=== PATIENT | female | born 1975 | race Caucasian/White ===

== ENCOUNTER 2016-10-22 07:42 | Emergency (ER) | payer OTHER ==
[2016-10-22 08:33] LABS: URINE APPEARANCE CLEAR; URINE BILIRUBIN NEGATIVE (NEGATIVE); URINE BLOOD SMALL (NEGATIVE); URINE COLOR YELLOW; URINE GLUCOSE (UA) NEGATIVE (NEGATIVE); URINE KETONE NEGATIVE (NEGATIVE); URINE LEUKOCYTE ESTERASE NEGATIVE (NEGATIVE); URINE NITRITE NEGATIVE (NEGATIVE); URINE PROTEIN NEGATIVE (NEGATIVE); URINE UROBILINOGEN 0.2 E.U./dL (0.20 - 1.00)
[2016-10-22 08:35] LABS: HCG,QUALITATIVE URINE NEGATIVE (NEGATIVE); HEMATOCRIT 30.6 % (35.0-47.0); HEMOGLOBIN 8.7 gm/dl (11.6-16.0); MEAN CELL VOLUME 66.2 fl (81-97); MEAN CORPUSCULAR HEMOGLOBIN 18.8 pg (27-33); MEAN CORPUSCULAR HGB CONC 28.4 g/dl (32-36); MEAN PLATELET VOLUME 8.9 fl (7.4-10.4); PLATELET COUNT 585 K/uL (130-400); RED BLOOD COUNT 4.62 M/uL (3.80-5.40); RED CELL DISTRIBUTION WIDTH 17.1 % (11.5-14.5)
[2016-10-22 08:41] LABS: WHITE BLOOD COUNT W/O DIFF 20.6 K/uL (4.2-12.2)
[2016-10-22] MEDS: 0.9 % SODIUM CHLORIDE 1,000 ML BAG IV ONE ×3 (08:41→11:05)
--- NOTE | 2016-10-22 08:41 | Emergency Department Record ---
History of Present Illness - General Chief Complaint: Abdominal Pain Stated Complaint: ABD PAIN/PASSED OUT Time Seen by Provider: 10/22/16 08:08 Source: Patient Mode of Arrival: Ambulatory Limitations: No limitations - History of Present Illness Initial Comments: pt has had ap and diarrhea for a week and vomiting x1. this morning as she was leaving the bathroom she became lightheaded and passed out hitting her head hard on the doorjamb. she has a bad headache now.. she also injured her r knee but is able to bear wt. Complaint: Abdominal pain Onset/Timin -: Week(s) Location: Suprapubic Severity: Moderate Quality: Cramping, Stabbing Consistency: Intermittent Improves With: Nothing Worsens With: Nothing Associated Symptoms: Diarrhea, Syncope, Vomiting Treatments Prior to Arrival: Other - Related Data Patient : No Home Medications Medication Instructions Recorded Confirmed Last Taken Metformin HCl [Metformin HCl] 500 mg PO TID 10/22/16 10/22/16 10/22/16 Spironolactone [Aldactone] 50 mg PO DAILY 10/22/16 10/22/16 Unknown Spironolactone [Aldactone] 50 mg PO DAILY 10/22/16 10/22/16 10/22/16 Allergies Allergy/AdvReac Type Severity Reaction Status Date / Time Sulfa (Sulfonamide Allergy ANAPHYLAXIS Verified 10/22/16 07:47 Antibiotics) Travel Screening - Travel/Exposure Within Last 30 Days Have you traveled within the last 30 days?: No - Travel/Exposure Within Last Year Have you traveled outside the [place] in the last year?: No - Additonal Travel Details Have you been exposed to anyone with a communicable illness?: No - Travel Symptoms Symptom Screening: None Review of Systems Reviewed: No additional complaints except as noted below Constitutional: Reports: As per HPI. Denies: Chills, Fever, Malaise, Night sweats, Weakness, Weight change Eyes: Reports: As per HPI. Denies: Eye discharge, Eye pain, Photophobia, Vision change ENT: Reports: As per HPI. Denies: Congestion, Dental pain, Ear pain, Epistaxis , Hearing loss, Throat pain Respiratory: Reports: As per HPI. Denies: Cough, Dyspnea, Hemoptysis, Stridor, Wheezes Cardiovascular: Reports: As per HPI. Denies: Arrhythmia, Chest pain, Dyspnea on exertion, Edema, Murmurs, Orthopnea, Palpitations, Paroxysmal nocturnal dyspnea, Rheumatic Fever, Syncope Endocrine: Reports: As per HPI. Denies: Fatigue, Heat or cold intolerance, Polydipsia, Polyuria Gastrointestinal: Reports: As per HPI. Denies: Abdominal pain, Constipation, Diarrhea, Hematemesis, Hematochezia, Melena, Nausea, Vomiting Genitourinary: Reports: As per HPI. Denies: Abnormal menses, Discharge, Dyspareunia, Dysuria, Frequency, Hematuria, Incontinence, Retention, Urgency Musculoskeletal: Reports: As per HPI. Denies: Arthralgia, Back pain, Gout, Joint swelling, Myalgia, Neck pain Skin: Reports: As per HPI. Denies: Bruising, Change in color, Change in hair/ nails, Lesions, Pruritus, Rash Neurological: Reports: As per HPI. Denies: Abnormal gait, Confusion, Headache, Numbness, Paresthesias, Seizure, Tingling, Tremors, Vertigo, Weakness Psychiatric: Reports: As per HPI. Denies: Anxiety, Auditory hallucinations, Depression, Homicidal thoughts, Suicidal thoughts, Visual hallucinations Hematological/Lymphatic: Reports: As per HPI. Denies: Anemia, Blood Clots, Easy bleeding, Easy bruising, Swollen glands Past Medical History - SOCIAL HISTORY Smoking Status: Never smoker - RESPIRATORY Hx Respiratory Disorders: No - CARDIOVASCULAR Hx Cardio Disorders: No - NEURO Hx Neuro Disorders: No - GI Hx GI Disorders: No - Hx Genitourinary Disorders: Yes Comment:: PCOS - ENDOCRINE Hx Endocrine Disorders: No - MUSCULOSKELETAL Hx Musculoskeletal Disorders: Yes Hx Arthritis: Yes (knee-right) - PSYCH Hx Psych Problems: Yes Comment:: hyperventilation disorder - HEMATOLOGY/ONCOLOGY Hx Hematology/Oncology Disorders: No Family Medical History Any Significant Family History?: Yes Hx Diabetes: Grandparents Hx HTN: Mother Physical Exam - General General Appearance: Alert, Oriented x3, Cooperative, Mild distress - Head Head exam: Normal inspection Head exam detail: General tenderness - Eye Eye exam: Normal appearance, PERRL, EOMI Pupils: Normal accommodation - ENT ENT exam: Normal exam, Mucous membranes moist, Normal external ear exam, Normal orophraynx Ear exam: Normal external inspection. negative: External canal tenderness Nasal Exam: Normal inspection. negative: Discharge, Sinus tenderness Mouth exam: Normal external inspection, Tongue normal Teeth exam: Normal inspection. negative: Dental caries Throat exam: Normal inspection. negative: Tonsillar erythema, Tonsillar exudate - Neck Neck exam: Normal inspection, Full ROM. negative: Tenderness - Respiratory Respiratory exam: Normal lung sounds bilaterally. negative: Respiratory distress - Cardiovascular Cardiovascular Exam: Normal rhythm, Normal heart sounds, Tachycardia - GI/Abdominal GI/Abdominal exam: Soft, Normal bowel sounds, Tenderness - Rectal Rectal exam: Deferred - exam: Deferred - Extremities Extremities exam: Normal inspection, Full ROM, Normal capillary refill, Tenderness - Back Back exam: Reports: Normal inspection, Full ROM. Denies: Muscle spasm, Rash noted, Tenderness - Neurological Neurological exam: Alert, CN II-XII intact, Normal gait, Oriented X3 - Psychiatric Psychiatric exam: Normal affect, Normal mood - Skin Skin exam: Dry, Intact, Pallor, Warm Course Vital Signs 10/22/16 07:53 Temperature 98.9 F Pulse Rate 109 H Respiratory 18 Rate Blood Pressure 118/67 Pulse Ox 100 Medical Decision Making - Lab Data Result diagrams: 10/22/16 08:00 10/22/16 08:00 Disposition Disposition: Discharge Clinical Impression: Syncope Qualifiers: Syncope type: unspecified Qualified Code(s): R55 - Syncope and collapse Anemia Qualifiers: Anemia type: iron deficiency Iron deficiency anemia type: chronic blood loss Qualified Code(s): D50.0 - Iron deficiency anemia secondary to blood loss ( chronic) Disposition: Home, Self-Care Condition: (1) Good Instructions: Iron Rich Diet (ED), Iron Deficiency Anemia (ED), Syncope (ED) Additional Instructions: follow up with dr jhonny akbar. start taking iron again Referrals: EMMY ARIAS [MEDICAL DOCTOR] - Forms: Patient Portal Access Quality - Quality Measures Quality Measures: N/A - Blood Pressure Screening Does Patient Have Any of the Following: No Blood Pressure Classification: Normal BP Reading Systolic Measurement: 118 Diastolic Measurement: 67 Screening for High Blood Pressure: < Normal BP, F/U Not Required > [[id number]]
[2016-10-22 08:45] LABS: URINE BACTERIA NONE SEEN; URINE RBC 0 - 2 (NONE SEEN); URINE SQUAMOUS EPITHELIAL CELL 0 - 2 /hpf; URINE WBC 0 - 2 (0-2/hpf)
[2016-10-22 08:48] LABS: ALB/GLOB RATIO 1.3 (1.1-1.8); ALKALINE PHOSPHATASE 107 U/L (38-126); ALT/SGPT 34 U/L (9-52); ANION GAP 10.9 (7-16); AST/SGOT 14 U/L (14-36); BILIRUBIN,TOTAL 0.43 mg/dL (0.2-1.3); BLOOD UREA NITROGEN 15 mg/dL (7-17); CARBON DIOXIDE 24.1 mmol/L (22-30); CREATININE 0.6 mg/dL (0.52-1.04); EST GLOMERULAR FILTRATION RATE > 60 ml/min; GLUCOSE,RANDOM 131 mg/dL (70-110); LIPASE 112 U/L (23-300); TOTAL PROTEIN 7.2 gm/dL (6.3-8.2)
[2016-10-22 09:08] LABS: HYPOCHROMIA 1+; MICROCYTOSIS 2+
[2016-10-22 11:43] LABS: CRYPTOSPORIDIUM PARVUM ANTIGEN NOT DETECTED (NOT DETECT); GIARDIA LAMBLIA ANTIGEN NOT DETECTED (NOT DETECT)
[2016-10-22 11:44] LABS: ROTOVIRUS NOT DETECTED (NOT DETECT)
[2016-10-22 12:33] LABS: MOLECULAR C DIFF TOXIN SCREEN NOT DETECTED
--- NOTE | 2016-10-23 07:42 | CT SCAN REPORT ---
EXAM: HEAD CT WITHOUT CONTRAST HISTORY: SYNCOPE, FALL, FRONTAL HEAD INJURY. TECHNIQUE: Contiguous axial images from the cerebral convexities to the foramen magnum were obtained without IV contrast. Comparison: None. Hand dominance: Right. Encounter: Initial. FINDINGS: The brain volume is normal. No acute intracranial hemorrhage, mass effect, or midline shift. No CT evidence of acute infarct. The ventricles, basal cisterns, and sulci are within normal limits. The osseous structures, soft tissues and paranasal sinuses are unremarkable. IMPRESSION: NORMAL HEAD CT. JOB NUMBER: [id number] [facility]
== END 2016-10-22 14:14 | disposition home or self-care (01) ==
LOC: ER 07:42
DX: S09.90XA Unspecified injury of head, initial encounter (principal); S89.91XA Unspecified injury of right lower leg, initial encounter; R19.7 Diarrhea, unspecified; R55 Syncope and collapse; R11.11 Vomiting without nausea; R51 Headache; D50.0 Iron deficiency anemia secondary to blood loss (chronic); W18.09XA Striking against other object with subsequent fall, initial encounter; Y92.002 Bathroom of unspecified non-institutional (private) residence as the place of occurrence of the external cause
CPT/HCPCS: 70450; 80053; 81001; 81025; 82272; 83690; 85027; 87329; 87425; 87427; 87493; 89055; 93005; 93010; 99284; J7030